=== PATIENT | female | born 1980 | race Caucasian/White ===

== ENCOUNTER → 2021-12-28 | Emergency (ER) | payer OTHER, MEDICAID ==
[~2021-12-28] VITALS: Ht 162.6 cm; Wt 69.4 kg
[~2021-12-28] MED LIST: KETO10TA2 PO; KETOROLAC TROMETHAMINE INJ 30 MG/ML VIAL IM ONE; KETOROLAC TROMETHAMINE INJ 30 MG/ML VIAL ONE
--- NOTE | 2021-12-28 16:42 | NUR ---
CAME IN FOR DIZZINESS, NAUSEA HEADACHE x 2HRS AGO. "FEELING LITTLE BETTER NOW." VITALS ARE WITHIN NORMAL LIMITS. AWAITING MD SAAVEDRA.
--- NOTE | 2021-12-28 17:59 | NUR ---
Patient discharged to home in stable condition. Written and verbal after care instructions given. Patient verbalizes understanding of instruction.
[2021-12-28 18:00] VITALS: BP 117/77
== END | disposition home or self-care (01) ==
LOC: ER 19:08
DX: R51.9 Headache, unspecified (principal); Z79.899 Other long term (current) drug therapy
CPT/HCPCS: 99283; 96372; J1885

== ENCOUNTER 2023-08-14 15:21 | Emergency (ER) | payer MEDICAID, OTHER ==
[~2023-08-14] VITALS: Ht 160 cm; Wt 81.6 kg
[~2023-08-14 15:21] MED LIST changes: -KETOROLAC TROMETHAMINE INJ 30 MG/ML VIAL IM ONE; -KETOROLAC TROMETHAMINE INJ 30 MG/ML VIAL ONE
[2023-08-14 15:31] VITALS: BP 120/78; TEMP 98.9; O2SAT 100
== END 2023-08-14 16:08 | disposition home or self-care (01) ==
LOC: ER 15:28
DX: S61.215A Laceration without foreign body of left ring finger without damage to nail, initial encounter (principal); W45.8XXA Other foreign body or object entering through skin, initial encounter; Y93.89 Activity, other specified; Y92.89 Other specified places as the place of occurrence of the external cause; Y99.8 Other external cause status